=== PATIENT | female | born 1990 | race Caucasian/White ===

== ENCOUNTER 2024-11-05 07:58 | Emergency (ER) | payer OTHER, SELFPAY ==
[2024-11-05 08:02] VITALS: BP 125/72; PULSE 78; TEMP 36.7; O2SAT 99; BMI 32.9
--- NOTE | 2024-11-05 09:32 | ED_ITS ---
HPI HPI - Extremity Injury (Lower) General Chief Complaint: Extremity Injury, Lower Stated Complaint: LOWER EXTERMITY PAIN Time Seen by Provider: 11/05/24 08:10 Source: patient Mode of arrival: walk-in Limitations: no limitations History of Present Illness HPI Narrative: The patient comes today with a left knee pain that she sustained after falling while decreasing the steps, patient was not dizzy but she fell on her left knee flexed and she has not been able to flex her knee since then, the patient mentioned that she is coming from the [facility] detox facility She had a history of previous injury to the right knee Related Data Home Medications ?Medication ?Instructions ?Recorded ?Confirmed hydroxyzine pamoate 25 mg capsule 25 mg PO TID 11/05/24 11/05/24 (Vistaril) lamotrigine 25 mg tablet (Lamictal) 25 mg PO DAILY 11/05/24 11/05/24 trazodone 50 mg tablet 25 mg PO DAILY 11/05/24 11/05/24 Previous Rx's ?Medication ?Instructions ?Recorded diclofenac sodium 75 mg 75 mg PO BID PRN pain #14 tabs 11/05/24 tablet,delayed release Allergies Allergy/AdvReac Type Severity Reaction Status Date / Time Penicillins Allergy HIVES Verified 11/05/24 08:07 Opioid HPI Opioid Management Most Recent Pain and Opioid Data: Last Pain Scale 8 11/05/24 09:44 11/05/24 Last OCT Pain Assessment 11/05/24 09:44 Review of Systems ROS Status of ROS 10 or more systems reviewed and unremark able except as noted in history and below PFSH PFSH Social History Little interest or pleasure in doing things: not at all Feeling down, depressed, or hopeless: not at all Exam Narrative Exam Narrative: Nurses notes and vital signs reviewed and patient is not hypoxic. General: Well-appearing and in no apparent distress. Skin: Warm, dry, no pallor noted. No rash. Head: Normocephalic, atraumatic. Neck: Supple, non-tender. Musculoskeletal: normal ROM, no calf or popliteal tenderness, tenderness on palpation of the patellar area on the left side there is no ecchymosis noted, no significant effusion and no vascular injury Constitutional Vital Signs, click to edit/add: Last Vital Signs Temp 98.1 F 11/05/24 08:02 Pulse 78 11/05/24 08:02 Resp 20 11/05/24 08:02 BP 125/72 11/05/24 08:02 Pulse Ox 99 11/05/24 08:02 O2 Del Method Room Air 11/05/24 08:02 Course Vital Signs Vital signs: Vital Signs Temperature 98.1 F 11/05/24 08:02 Pulse Rate 78 11/05/24 08:02 Respiratory Rate 20 11/05/24 08:02 Blood Pressure 125/72 11/05/24 08:02 Pulse Oximetry 99 11/05/24 08:02 Oxygen Delivery Method Room Air 11/05/24 08:02 Temperature 98.1 F 11/05/24 08:02 Pulse Rate 78 11/05/24 08:02 Respiratory Rate 20 11/05/24 08:02 Blood Pressure 125/72 11/05/24 08:02 Pulse Oximetry 99 11/05/24 08:02 Oxygen Delivery Method Room Air 11/05/24 08:02 MDM - Extremity Injury (Lower) MDM Narrative Medical decision making narrative: X-ray of the patient's knee shows no acute pathology The patient was provided with a knee immobilizer and she mentioned that she was not able to walk with any blood in the right self so I provided her with crutches Toradol in the ER and Voltaren to go home with Referred to orthopedic in the outpatient The patient is to follow up with primary care physician in next 2-3 days or to return to the emergency department should any of the signs or symptoms worsen or new symptoms develop. The patient agrees with the following Diagnosis and Treatment plan and the patient will be discharged home. Discharge Plan Discharge Chief Complaint: Extremity Injury, Lower Clinical Impression: Knee sprain, Contusion of knee Patient Disposition: Home, Self-Care Time of Disposition Decision: 09:37 Condition: Good Prescriptions / Home Meds: New diclofenac sodium 75 mg tablet,delayed release (DR/EC) 75 mg PO BID PRN (Reason: pain) Qty: 14 0RF No Action trazodone 50 mg tablet 25 mg PO DAILY lamotrigine [Lamictal] 25 mg tablet 25 mg PO DAILY hydroxyzine pamoate [Vistaril] 25 mg capsule 25 mg PO TID Print Language: Indonesian Instructions: Knee Sprain (DC), Contusion in Adults (ED) Referrals: Physician,Non-Staff, MD [Primary Care Provider] - 1 week Noel Price MD [Physician] - 1 week
[2024-11-05] MEDS: KETOROLAC TROMETHAMINE 30 MG/ML VIAL IM (09:44)
== END 2024-11-05 10:16 | disposition home or self-care (01) ==
PROVIDERS: Emergency Provider Emergency Medicine
DX: S80.02XA Contusion of left knee, initial encounter (principal); S83.92XA Sprain of unspecified site of left knee, initial encounter; W10.8XXA Fall (on) (from) other stairs and steps, initial encounter
CPT/HCPCS: 73562; 96372; 99284; J1885